=== PATIENT | male | born 1965 | race African-American/Black ===

== ENCOUNTER 2018-04-23 21:08 | Emergency (ER) | payer SELFPAY ==
[~2018-04-23] VITALS: Ht 180.3 cm; Wt 77.0 kg
[2018-04-24] MEDS ORDERED: KETOROLAC 60MG/2ML VIAL IM STA (00:54)
[2018-04-24] MEDS ORDERED: TETANUS, DIPHTHERIA, PERTUSSIS VAC/PF 0.5ML (>7YR OLD) IM ONE (03:45)
[2018-04-24 03:59] VITALS: BP 123/78
== END 2018-04-24 04:19 | disposition short-term general hospital (02) ==
LOC: ER 04-24 03:17
DX: S62.393A Other fracture of third metacarpal bone, left hand, initial encounter for closed fracture (principal); S62.395A Other fracture of fourth metacarpal bone, left hand, initial encounter for closed fracture; S62.397A Other fracture of fifth metacarpal bone, left hand, initial encounter for closed fracture; I10 Essential (primary) hypertension; X58.XXXA Exposure to other specified factors, initial encounter; Y93.89 Activity, other specified; Y92.89 Other specified places as the place of occurrence of the external cause; Y99.8 Other external cause status
CPT/HCPCS: 29125; 73130; 90471; 90715; 96372; 99285; J1885